=== PATIENT | female | born 1970 ===

== ENCOUNTER 2023-05-24 23:40 | Inpatient (IN) | payer OTHER ==
[~2023-05-24] VITALS: Ht 167.6 cm; Wt 87.7 kg
[2023-05-24] MEDS: IOHEXOL 300 MG/ML 100ML BOTTLE IJ ONE (23:50)
[2023-05-25] VITALS (7 sets, daily range): BP systolic 119–138; BP diastolic 73–93; PULSE 98–114; RESP 14–18; TEMP 97.5–98.2; O2SAT 95–100
[2023-05-25 00:06] LABS: Basophils # (auto) 0.1 10 ^3/uL (0-0.2); Eosinophils # (auto) 0.3 10 ^3/uL (0-0.8); Eosinophils % (auto) 3.4 % (0.0-7.0); Hematocrit 41.5 % (36.0-46.0); Hemoglobin 13.6 g/dL (12.2-16.2); Lymphocytes # (auto) 2.9 10 ^3/uL (0.4-5.4); Lymphocytes % (auto) 30.8 % (10.0-50.0); Mean Corpuscular Hemoglobin 27.9 pg (28.0-32.0); Mean Corpuscular Hgb Conc. 32.7 g/dL (32.0-36.0); Mean Corpuscular Volume 85.3 fL (80.0-100.0); Monocytes # (auto) 0.8 10 ^3/uL (0-1.3); Monocytes % (auto) 8.5 % (0.0-12.0); Neutrophils # (auto) 5.4 10 ^3/uL (1.6-8.6); Neutrophils % (auto) 56.3 % (37.0-80.0); Red Blood Cells 4.87 10^6/uL (4.0-5.20); Red Cell Distribution Width 16.1 % (11.8-14.3); White Blood Cell 9.6 10^3/uL (4.4-10.8)
[2023-05-25 00:14] LABS: Chloride 107 mmol/L (98-107); Potassium 3.7 mmol/L (3.5-5.1); Sodium 140 mmol/L (136-145)
[2023-05-25 00:15] LABS: Anion Gap 9 (5-15); Calcium 9.2 mg/dL (8.7-10.4); Carbon Dioxide 24 mmol/L (20-30)
[2023-05-25 00:20] LABS: BUN/Creatinine Ratio 13.7 (10.0-20.0); Blood Urea Nitrogen 10 mg/dL (9-23); Glucose 131 mg/dL (74-106)
[2023-05-25 00:23] LABS: INR 0.98 (0.9-1.15); Partial Thromboplastin Time 26.8 SEC (24.5-34.5); Prothrombin Time 10.3 sec (9.3-11.8)
[2023-05-25 01:59] LABS: Blood Alcohol 324.2 mg/dL (<10)
[2023-05-25] MEDS: LIDOCAINE W/ EPINEPHRINE 1% 20ML VIAL ONE (03:07)
[2023-05-25] MEDS: LIDOCAINE W/ EPINEPHRINE 2% INJ 20ML VIAL ONE (03:09)
[2023-05-25] MEDS ORDERED: DOCUSATE SOD 100 MG CAP PO PRN (04:15)
[2023-05-25] MEDS ORDERED: hydrALAZINE HCL 20 MG/ML VL IV PRN (04:15)
[2023-05-25] MEDS ORDERED: ONDANSETRON HCL 4 MG/2 ML VIAL IV PRN (04:15)
[2023-05-25] MEDS: SODIUM CHLORIDE 0.9% 1,000 ML IV SCH (04:36)
[2023-05-25] MEDS ORDERED: NITROGLYCERIN 0.4 MG SL TAB SL PRN (05:00)
[2023-05-25] MEDS ORDERED: MORPHINE SULFATE INJ 2 MG/ml SYRG IV PRN (05:00)
[2023-05-25] MEDS: HYDROcodone-ACET 5/325MG TAB PO PRN (05:15)
[2023-05-25 07:15] LABS: Basophils # (auto) 0.1 10 ^3/uL (0-0.2); Basophils % (auto) 0.7 % (0.0-2.0); Eosinophils # (auto) 0.1 10 ^3/uL (0-0.8); Eosinophils % (auto) 1.6 % (0.0-7.0); Hematocrit 38.9 % (36.0-46.0); Hemoglobin 12.7 g/dL (12.2-16.2); Lymphocytes # (auto) 1.9 10 ^3/uL (0.4-5.4); Lymphocytes % (auto) 21.6 % (10.0-50.0); Mean Corpuscular Hemoglobin 28.1 pg (28.0-32.0); Mean Corpuscular Hgb Conc. 32.6 g/dL (32.0-36.0); Monocytes # (auto) 0.6 10 ^3/uL (0-1.3); Monocytes % (auto) 6.4 % (0.0-12.0); Neutrophils # (auto) 6.3 10 ^3/uL (1.6-8.6); Neutrophils % (auto) 69.7 % (37.0-80.0); Red Blood Cells 4.52 10^6/uL (4.0-5.20); Red Cell Distribution Width 16.1 % (11.8-14.3)
[2023-05-25 07:32] LABS: Alanine Aminotransferase 32 U/L (7-40); Albumin 4.6 g/dL (3.2-4.8); Alkaline Phosphatase 75 U/L (46-116); Anion Gap 6 (5-15); Aspartate Aminotransferase 19 U/L (13-40); BUN/Creatinine Ratio 13.2 (10.0-20.0); Bilirubin, Total 0.2 mg/dL (0.2-1.0); Blood Urea Nitrogen 9 mg/dL (9-23); Calcium 9.2 mg/dL (8.5-10.1); Carbon Dioxide 25 mmol/L (20-30); Chloride 110 mmol/L (98-107); Glucose 118 mg/dL (74-106); Potassium 4.5 mmol/L (3.5-5.1); Sodium 141 mmol/L (136-145)
[2023-05-25 07:33] LABS: Total Protein 7.1 g/dL (5.7-8.2)
[2023-05-25] MEDS ORDERED: LOVA20TA4 PO (10:54)
[2023-05-25] MEDS ORDERED: METO-158 PO (10:54)
[2023-05-25] MEDS: MULTIPLE VITAMIN TAB PO SCH (10:54)
[2023-05-25] MEDS: FOLIC ACID 1 MG TAB PO SCH (10:54)
[2023-05-25] MEDS: THIAMINE HCL 100 MG TAB PO SCH (10:54)
[2023-05-25 12:58] LABS: Urine Bacteria FEW /hpf (None Seen); Urine Blood Negative /uL (Negative); Urine Clarity HAZY (Clear); Urine Color Yellow (Yellow); Urine Protein, UAD TRACE (Negative); Urine Urobilinogen Normal (Negative); Urine WBC 1 /hpf (0 - 5)
[2023-05-25 13:09] LABS: Amphetamine Screen, Urine Neg (NEGATIVE); Barbiturate Scree,Urine Neg (NEGATIVE); Benzodiazephine Screen, Urine Neg (NEGATIVE); Cannabinoid Screen, Urine Neg (NEGATIVE); Cocaine Screen, Urine Neg (NEGATIVE); Opiate Scree,Urine Neg (NEGATIVE); Phencyclidine Screen, Urine Neg (NEGATIVE)
[2023-05-25] MEDS: chlordiazePOXIDE HCL 25 MG CAP PO SCH (13:10)
[2023-05-25] MEDS: METOPROLOL TARTRATE 25 MG TAB PO ONE (13:11)
[2023-05-25] MEDS: ACETAMINOPHEN 325 MG TAB PO PRN (13:17)
[2023-05-25] MEDS: LORazepam 2MG/ML-1ML VIAL IV PRN (13:24)
[2023-05-25] MEDS: FOLIC ACID 1 MG, MAGNESIUM SULF SDV 50% 8 MEQ, MULTIPLE VITAMIN 10 ML, THIAMINE INJ 100... INJ SCH (17:17)
[2023-05-25] MEDS: ONDANSETRON HCL 4 MG/2 ML VIAL IV PRN (17:55)
[2023-05-25] MEDS: METOPROLOL TARTRATE 25 MG TAB PO SCH (20:56)
[2023-05-25] MEDS ORDERED: METOPROLOL TARTRATE 25 MG TAB PO SCH (22:00)
[2023-05-26] VITALS (8 sets, daily range): BP systolic 110–136; BP diastolic 62–88; PULSE 76–98; RESP 17–18; TEMP 97.8–98.4; O2SAT 93–98
[2023-05-26 05:12] LABS: Basophils # (auto) 0 10 ^3/uL (0-0.2); Basophils % (auto) 0.7 % (0.0-2.0); Eosinophils # (auto) 0.2 10 ^3/uL (0-0.8); Eosinophils % (auto) 2.9 % (0.0-7.0); Hematocrit 35.7 % (36.0-46.0); Hemoglobin 11.6 g/dL (12.2-16.2); Lymphocytes # (auto) 2.1 10 ^3/uL (0.4-5.4); Lymphocytes % (auto) 31.5 % (10.0-50.0); Mean Corpuscular Hemoglobin 27.9 pg (28.0-32.0); Mean Corpuscular Hgb Conc. 32.5 g/dL (32.0-36.0); Mean Corpuscular Volume 85.6 fL (80.0-100.0); Monocytes # (auto) 0.5 10 ^3/uL (0-1.3); Neutrophils # (auto) 3.7 10 ^3/uL (1.6-8.6); Neutrophils % (auto) 56.9 % (37.0-80.0); Red Blood Cells 4.17 10^6/uL (4.0-5.20); Red Cell Distribution Width 16.3 % (11.8-14.3); White Blood Cell 6.6 10^3/uL (4.4-10.8)
[2023-05-26 05:23] LABS: Albumin 3.8 g/dL (3.2-4.8); Alkaline Phosphatase 60 U/L (46-116); Anion Gap 6 (5-15); Aspartate Aminotransferase 16 U/L (13-40); BUN/Creatinine Ratio 17.6 (10.0-20.0); Bilirubin, Total 0.7 mg/dL (0.2-1.0); Blood Urea Nitrogen 12 mg/dL (9-23); Calcium 8.9 mg/dL (8.7-10.4); Carbon Dioxide 26 mmol/L (20-30); Chloride 108 mmol/L (98-107); Glucose 103 mg/dL (74-106); Potassium 3.9 mmol/L (3.5-5.1); Sodium 140 mmol/L (136-145); Total Protein 6.1 g/dL (5.7-8.2)
[2023-05-26 06:05] LABS: Alanine Aminotransferase 24 U/L (7-40)
[2023-05-27] VITALS (7 sets, daily range): BP systolic 118–132; BP diastolic 69–86; PULSE 70–84; RESP 16–18; TEMP 98–98.2; O2SAT 93–99
[2023-05-27] MEDS ORDERED: LORazepam 2MG/ML-1ML VIAL IV PRN (22:15)
[2023-05-28] VITALS (7 sets, daily range): BP systolic 120–147; BP diastolic 73–97; PULSE 67–92; RESP 15–18; TEMP 97.5–98.8; O2SAT 93–96
[2023-05-29 05:00] VITALS: BP 136/75; PULSE 70; RESP 18; TEMP 97.2; O2SAT 97
[2023-05-29 08:00] VITALS: PULSE 80
[2023-05-29 08:27] VITALS: BP 128/89; PULSE 75; RESP 18; TEMP 98; O2SAT 96
[2023-05-29] MEDS ORDERED: FOLI-119 PO (09:38)
[2023-05-29] MEDS ORDERED: CHL25C PO (09:38)
[2023-05-29] MEDS ORDERED: THIA100T13 PO (09:38)
[2023-05-29] MEDS ORDERED: CHLO25CA56 PO (09:40)
[2023-05-29 12:40] VITALS: BP 134/80; PULSE 79; RESP 20; TEMP 98; O2SAT 97
== END 2023-05-29 12:45 | disposition home or self-care (01) | DRG 917 ==
LOC: ER 23:40 → EDBD 23:40 → TELE 05-25 04:50 → TELE-CENTR 05-25 10:04
PROVIDERS: ADMIT Nurse Practitioner Family; ATTEND Family Medicine
DX: T51.91XA Toxic effect of unspecified alcohol, accidental (unintentional), initial encounter (principal); G92.8 Other toxic encephalopathy; S00.03XA Contusion of scalp, initial encounter; F10.129 Alcohol abuse with intoxication, unspecified; E78.5 Hyperlipidemia, unspecified; F17.200 Nicotine dependence, unspecified, uncomplicated; I10 Essential (primary) hypertension; K76.0 Fatty (change of) liver, not elsewhere classified; M19.90 Unspecified osteoarthritis, unspecified site; Y90.8 Blood alcohol level of 240 mg/100 ml or more; Z82.49 Family history of ischemic heart disease and other diseases of the circulatory system; Z83.3 Family history of diabetes mellitus; W10.8XXA Fall (on) (from) other stairs and steps, initial encounter; Y93.89 Activity, other specified; Y92.89 Other specified places as the place of occurrence of the external cause; Y99.8 Other external cause status
CPT/HCPCS: 12001; 36415; 72141; 80048; 80053; 80307; 80320; 81001; 85025; 85610; 85730; 95819; G0378; J2405

== ENCOUNTER 2024-06-16 17:17 | Emergency (ER) | payer OTHER ==
[~2024-06-16] VITALS: Ht 152.4 cm; Wt 69.3 kg
[~2024-06-16 17:17] MED LIST: CHL25C PO; CHLO25CA10 PO; FOLI-119 PO; LOVA20TA4 PO; METO-158 PO; THIA100T13 PO
--- NOTE | 2024-06-16 17:36 | ECG ---
[facility] Test Date: 2024-06-16 Test Time: 17:35:12 Pat Name: SHIMA GUTIERREZ Department: er Room: Gender: F Labor Relations Specialist: ed : 1970 Requested By: MACKENZIE HENRIQUEZ Order Number: [id number] Reading MD: Measurements Intervals [place] Rate: 79 P: 52 MO: 157 QRS: 54 QRSD: 97 T: 52 QT: 404 QTc: 464 Interpretive Statements Sinus rhythm Please click the below link to view image of tracing.
--- NOTE | 2024-06-16 17:46 | ED.PDOC ---
HPI Comments 53 y/o F, BIBA with PMHX of HTN presents to the ED for CC of hypertension. EMS states, patient is coming from [facility] where she was relayed to the ED for further evaluation due to a hypertensive reading. Patient states, that she recently traveled to [facility] x3days ago and forgot her Metoprolol prescription. Patient relays, she returned this morning (06/16/24) and took double her medication as she began to experience new onset symptoms of nausea and dizziness. EMS states patient's BP in route to ED read at 201/102. Patient denies chest pain, fatigue, headache, numbness, or weakness. No other symptom or modifying factors at this time. Chief Complaint: Shortness of Breath Time Seen by MD: 17:25 Reviewed Notes: Nurses Notes, Field Crop Farming Supervisor Notes, Medications, Allergies Allergies: Coded Allergies: NO KNOWN ALLERGIES (Unverified , 05/24/23) Home Meds Active Scripts Chlordiazepoxide HCl (Chlordiazepoxide Hydrochl) 25 Mg Cap, 25 MG PO TID PRN, #30 CAP Prov:SHEY ROJAS MD 05/29/23 Folic Acid (Folic Acid) 1 Mg Tab, 1 MG PO DAILY, #30 TAB Prov:SHEY ROJAS MD 05/29/23 Thiamine HCl (Thiamine Hydrochloride) 100 Mg Tab, 100 MG PO DAILY, #30 TAB Prov:SHEY ROJAS MD 05/29/23 Reported Medications Chlordiazepoxide Hcl (Librium) 25 Mg Cp, 25 MG PO TID PRN, #30 CAP 05/29/23 Lovastatin (Lovastatin) 20 Mg Tab, 1 TAB PO DAILY, #30 TAB 5 Refills 05/25/23 Metoprolol Tartrate (Metoprolol Tartrate) 50 Mg Tab, 50 MG PO DAILY for 30 Days, MG 05/25/23 Information Source: Patient, Emergency Med Personnel Mode of Arrival: EMS Severity: Moderate Timing: Hours Duration: Since onset Prehospital treatment: None Onset: At Rest Cardiac Risk Factors: HTN PE Risk Factors: None History of: None Modifying Factors: Nothing Associated Signs and Symptoms: None Past Medical History PAST MEDICAL HISTORY: High Lipids, HTN Surgical History: Denies all surgeries LAMP CLEANER History: No Pertinent LAMP CLEANER History Family History Family History: Family hx of DM Social History Smoker: Non-Smoker Alcohol: Heavy Drugs: Denies Drug Use Lives In: Home Constitutional: denies: chills, diaphoresis, fatigue, fever, malaise, sweats, weakness, others EENTM: denies: blurred vision, double vision, ear bleeding, ear discharge, ear drainage, ear pain, ear ringing, eye pain, eye redness, hearing loss, mouth pain, mouth swelling, nasal discharge, nose bleeding, nose congestion, nose pain, photophobia, tearing, throat pain, throat swelling, voice changes, others Respiratory: denies: cough, hemoptysis, orthopnea, SOB at rest, shortness of breath, SOB with excertion, stridor, wheezing, others Cardiovascular: denies: chest pain, dizzy spells, diaphoresis, Dyspnea on exertion, edema, irregular heart beat, left arm pain, lightheadedness, palpitations, PND, syncope, others Gastrointestinal: reports: nausea; denies: abdomen distended, abdominal pain, blood streaked bowels, constipated, diarrhea, dysphagia, difficulty swallowing, hematemesis, melena, poor appetite, poor fluid intake, rectal bleeding, rectal pain, vomiting, others Genitourinary: denies: abnormal vagina bleeding, burning, dyspareunia, dysuria, flank pain, frequency, hematuria, incontinence, pain, , vagina discharge, urgency, others Neurological: reports: dizziness; denies: fainting, headache, left sided numbness, left sided weakness, numbness, paresthesia, pre-existing deficit, right sided numbness, right sided weakness, seizure, speech problems, tingling, tremors, weakness, others Musculoskeletal: denies: back pain, gout, joint pain, joint swelling, muscle pain, muscle stiffness, neck pain, others Integumetry: denies: bruises, change in color, change in hair/nails, dryness, laceration, lesions, lumps, rash, wounds, others Allergic/Immunocompromised: denies: Difficulty Healing, Frequent Infections, Hives, Itching, others Endocrine: denies: excessive hunger, excessive sweating, excessive thirst, excessive urination, flushing, intolerance to cold, intolerance to heat, unexplained weight gain, unexplained weight loss, others Psychiatric: denies: anxiety, bipolar disorder, depression, hopeless, panic disorder, schizophrenia, sleepless, suicidal, others All Other Systems: Reviewed and Negative Physical Exam General Appearance: No Apparent Distress HEENT: Normal ENT Inspection, Pharynx Normal, TMs Normal Neck: Full Range of Motion, Non-Tender, Normal, Normal Inspection Respiratory: Chest Non-Tender, Lungs Clear, No Accessory Muscle Use, No Respiratory Distress, Normal Breath Sounds Cardiovascular: No Edema, No JVD, No Murmur, No Gallop, Normal Peripheral Pulses, Regular Rate/Rhythm Breast Exam: Deferred Gastrointestinal: No Organomegaly, Non Tender, No Pulsatile Mass, Normal Bowel Sounds, Soft Genitalia: Deferred Pelvic: Deferred Rectal: Deferred Extremities: No calf tenderness, Normal capillary refill, Normal inspection, Normal range of motion, Non-tender, No pedal edema Musculoskeletal : Apperance: Normal Neurologic: Alert, talent acquisition program manager II-XII nml as Tested, No Motor Deficits, Normal Affect, Normal Mood, No Sensory Deficits Cerebellar Function: Normal Reflexes: Normal Skin: Dry, Normal Color, Warm Lymphatic: No Adenopathy EKG EKG : Pulse Rate (adult): 79 [place]: Normal Cardiac Rhythm: NSR Block: None Hypertrophy: None ST: Normal Was a procedure done? Was a procedure done?: No CP Differential Dx Differential Diagnosis: CA, Other (Hypertensive urgency) Differential Diagnosis: HTN Essential, HTN Accelerated, HTN Encephalopathy X-Ray, Labs, Meds, VS Vital Signs Date Time Temp Pulse Resp B/P (MAP) Pulse Ox O2 Delivery O2 Flow Rate FiO2 06/16/24 18:40 151/97 06/16/24 17:54 173/102 06/16/24 17:46 79 06/16/24 17:35 79 06/16/24 17:34 98.4 70 16 177/95 (122) 98 Lab Test 06/16/24 18:04 Range/Units White Blood Count 8.2 4.4-10.8 10^3/uL Red Blood Count 5.09 4.0-5.20 10^6/uL Hemoglobin 15.0 12.2-16.2 g/dL Hematocrit 44.4 36.0-46.0 % Mean Corpuscular Volume 87.3 80.0-100.0 fL Mean Corpuscular Hemoglobin 29.5 28.0-32.0 pg Mean Corpuscular Hemoglobin Concent 33.8 32.0-36.0 g/dL Red Cell Distribution Width 15.4 H 11.8-14.3 % Platelet Count 331 140-450 10^3/uL Mean Platelet Volume 6.4 L 6.9-10.8 fL Neutrophils (%) (Auto) 67.7 37.0-80.0 % Lymphocytes (%) (Auto) 22.7 10.0-50.0 % Monocytes (%) (Auto) 6.6 0.0-12.0 % Eosinophils (%) (Auto) 1.8 0.0-7.0 % Basophils (%) (Auto) 1.2 0.0-2.0 % Neutrophils # (Auto) 5.5 1.6-8.6 10 ^3/uL Lymphocytes # (Auto) 1.9 0.4-5.4 10 ^3/uL Monocytes # (Auto) 0.5 0-1.3 10 ^3/uL Eosinophils # (Auto) 0.1 0-0.8 10 ^3/uL Basophils # (Auto) 0.1 0-0.2 10 ^3/uL Nucleated Red Blood Cells 0.0 % Sodium Level 139 136-145 mmol/L Potassium Level 4.8 3.5-5.1 mmol/L Chloride Level 104 98-107 mmol/L Carbon Dioxide Level 26 20-31 mmol/L Anion Gap 9 5-15 Blood Urea Nitrogen 12 9-23 mg/dL Creatinine 0.73 0.550-1.02 mg/dL Glomerular Filtration Rate Calc 98 >90 mL/min BUN/Creatinine Ratio 16.4 10.0-20.0 Serum Glucose 105 74-106 mg/dL Calcium Level 10.3 8.7-10.4 mg/dL Troponin I High Sensitivity 5 </=34 ng/L Current Medications Medications (Trade) Dose Ordered Sig/Rima Route Start Time Stop Time Status Last Admin Clonidine HCl (Catapres Tablet) 0.2 mg ONCE ONCE PO 06/16/24 17:30 06/16/24 17:31 DC 06/16/24 17:54 The patient was given clonidine 0.2 mg by mouth for the elevated blood pressure which decreased after the clonidine The patient's CBC and chemistry panel are within normal limits At this time, the patient was being discharged The patient will follow up with the primary care doctor The patient will return to the emergency department's condition worsens. Time of 1ST Reevaluation: 17:55 Reevaluation 1ST: Unchanged Patient Education/Counseling: Diagnosis, Treatment, Prognosis, Need For Follow Up Family Education/Counseling: No Family Present Departure 1 Departure Time of Disposition: 20:18 Impression: Primary Impression: Hypertensive urgency Disposition: 01 HOME / SELF CARE / HOMELESS Condition: Fair Discharged With: Self Critical Care Note Critical Care Time?: No Stability Stability form required: No Heart Score Heart Score: Heart Score Response (Comments) Value History N/A 0 EKG N/A 0 Age N/A 0 Risk Factors N/A 0 Troponin N/A 0 Total 0 I personally scribed for MACKENZIE HENRIQUEZ MD ([email or web address]) on 06/16/24 at 17:46. Electronically submitted by Sulema Magaña ([email or web address]). MACKENZIE HENRIQUEZ MD Jun 16, 2024 17:46
[2024-06-16] MEDS: cloNIDine HCL 0.1 MG TAB PO ONE (17:54)
[2024-06-16 18:27] LABS: Basophils # (auto) 0.1 10 ^3/uL (0-0.2); Basophils % (auto) 1.2 % (0.0-2.0); Eosinophils # (auto) 0.1 10 ^3/uL (0-0.8); Eosinophils % (auto) 1.8 % (0.0-7.0); Hematocrit 44.4 % (36.0-46.0); Lymphocytes # (auto) 1.9 10 ^3/uL (0.4-5.4); Lymphocytes % (auto) 22.7 % (10.0-50.0); Mean Corpuscular Hemoglobin 29.5 pg (28.0-32.0); Mean Corpuscular Hgb Conc. 33.8 g/dL (32.0-36.0); Mean Corpuscular Volume 87.3 fL (80.0-100.0); Monocytes # (auto) 0.5 10 ^3/uL (0-1.3); Monocytes % (auto) 6.6 % (0.0-12.0); Neutrophils # (auto) 5.5 10 ^3/uL (1.6-8.6); Neutrophils % (auto) 67.7 % (37.0-80.0); Platelet Count (auto) 331 10^3/uL (140-450); Red Blood Cells 5.09 10^6/uL (4.0-5.20); Red Cell Distribution Width 15.4 % (11.8-14.3); White Blood Cell 8.2 10^3/uL (4.4-10.8)
[2024-06-16 18:37] LABS: Chloride 104 mmol/L (98-107); Potassium 4.8 mmol/L (3.5-5.1); Sodium 139 mmol/L (136-145)
[2024-06-16 18:38] LABS: Anion Gap 9 (5-15); Carbon Dioxide 26 mmol/L (20-31)
[2024-06-16 18:39] LABS: Calcium 10.3 mg/dL (8.7-10.4)
[2024-06-16] MEDS: cloNIDine HCL 0.1 MG TAB ONE (18:40)
[2024-06-16 18:43] LABS: BUN/Creatinine Ratio 16.4 (10.0-20.0); Blood Urea Nitrogen 12 mg/dL (9-23); Glucose 105 mg/dL (74-106)
[2024-06-16 20:30] VITALS: BP 168/87; PULSE 77; RESP 17; TEMP 98.3; O2SAT 97
== END 2024-06-16 20:33 | disposition home or self-care (01) ==
LOC: EDBD 17:17 → ER 17:17
DX: I16.0 Hypertensive urgency (principal); E78.5 Hyperlipidemia, unspecified; F10.10 Alcohol abuse, uncomplicated; Z79.899 Other long term (current) drug therapy
CPT/HCPCS: 36415; 80048; 84484; 85025; 93005